=== PATIENT | female | born 1990 | race Caucasian/White ===

== ENCOUNTER 2020-03-17 17:30 | Outpatient (CLI) | payer BC, SELFPAY ==
--- NOTE | ~2020-03-17 | CT_ITS ---
EXAMINATION: CT abdomen pelvis w con DATE: 03/17/2020 17:57 INDICATION: Left lower quadrant abdominal pain for 2 weeks. TECHNIQUE: Computed tomography (CT) of the abdomen and pelvis was performed with 100 cc Omnipaque 350 intravenous contrast. Automated exposure control and iterative reconstruction technique were employe d. Exam dose: 905.50 mGy-cm total exam DLP. COMPARISON: None. FINDINGS: There is discoid atelectasis or scarring in the lung bases, primarily at the medial segment of the left lower lobe. Normal heart size. No pericardial or pleural effusion. The liver appears normal. No bile duct dilatation. There is a small stone in the gallbladder. No gall bladder wall thickening or pericholecystic fluid or inflammation. No pancreatic mass lesion, calcific ation or ductal dilatation. Normal splenic size. Normal morphology of the adrenal glands. A few small renal cysts are suggested. The kidneys are otherwise unremarkable. No urinary tract calcu lexie or hydroureteronephrosis. Normal caliber of the abdominal aorta. The left ovary appears prominent, measuring approximately 3.2 x 4 cm. Consider pelvic sonographic cor relation as clinically appropriate. The right ovary is not visualized. The urinary bladder is unremar kable. No intraperitoneal or retroperitoneal or pelvic mass lesion or adenopathy or ascites. Normal appendix. No bowel obstruction, bowel wall thickening, pneumatosis or intraperitoneal free ai r. No suspicious osteolytic or osteoblastic lesions. L5 limbus vertebra. IMPRESSION: Cholelithiasis A few small renal cysts Prominent left ovary, measuring 3.2 x 4 cm; consider pelvic sonographic correlation as clinically flavio ropriate Reviewed, dictated and finalized at [facility]. Reviewed, dictated and finalized at [facility]. IMPRESSION: Cholelithiasis A few small renal cysts Prominent left ovary, measuring 3.2 x 4 cm; consider pelvic sonographic correla tion as clinically appropriate
== END 2020-03-17 17:31 | disposition home or self-care (01) ==
PROVIDERS: PCP Family Medicine; Visit Provider Family Medicine
DX: R10.32 Left lower quadrant pain (principal); K80.20 Calculus of gallbladder without cholecystitis without obstruction; N28.1 Cyst of kidney, acquired
CPT/HCPCS: 74177; Q9967

== ENCOUNTER 2023-08-21 13:22 | Emergency (ER) | payer OTHER, SELFPAY ==
[2023-08-21] VITALS (11 sets, daily range): BP systolic 95–143; BP diastolic 50–97; PULSE 54–107; RESP 15–24; TEMP 36.3–36.7; O2SAT 96–100
--- NOTE | 2023-08-21 13:25 | ECG_ITS ---
Measurements Intervals [place] Rate: 79 P: 59 MI: 137 QRS: 67 QRSD: 94 T: 54 QT: 367 QTc: 423 Interpretive Statements SINUS RHYTHM NONSPECIFIC T-WAVE ABNORMALITY NO PREVIOUS ECG AVAILABLE FOR COMPARISON Electronically Signed On 08-21-2023 15:38:58 [employer] by Barbara Demarco M.D.
--- NOTE | 2023-08-21 15:57 | ED.ANXIETY ---
HPI - Anxiety General Chief Complaint: Anxiety Stated Complaint: anxiety Time Seen by Provider: 08/21/23 14:35 Source: patient Mode of arrival: ambulatory Limitations: no limitations History of Present Illness HPI narrative: This is a 33 year old female that presents to the ER for worsening anxiety. Ongoing over the last couple of days. Reports today she feels like it would be better for her family if she was not alive. She takes Venlafaxine for anxiety and Xanax as needed. She has no active suicidal plan. No history of self harm. No previous psychiatric hospitalizations. Related Data Allergies Allergy/AdvReac Type Severity Reaction Status Date / Time tramadol Allergy Intermediate Vomiting Verified 08/09/23 12:56 eggs Allergy Mild Diahrrea Uncoded 08/09/23 12:56 Review of Systems Review of Systems: CONSTITUTIONAL: Denies fever PSYCHIATRIC: Reports anxiety and depression. All systems reviewed & are unremarkable except as noted in HPI and below PMFSH Past Medical History Medical History (Updated 08/21/23 @ 19:18 by Veronique Lai PA-C) Abnormal uterine bleeding Anxiety Chronic upset stomach Cubital tunnel syndrome on right Hematoma 2019 Numbness and tingling in both hands Numbness and tingling in right hand PCOS (polycystic ovarian syndrome) Recurrent UTI RUQ abdominal pain UTI (urinary tract infection) Weight management service not available Surgical History Surgical History H/O elbow surgery (~11/2020) H/O umbilical hernia repair (~01/2022) Hx of cholecystectomy (~06/26/22) Family History Family History Grandparent Hypertension Family history of malignant neoplasm of thyroid Social History Social History Smoking status: Former smoker Tobacco type: e-cigarettes/vaping Alcohol intake: current Substance use: current Substance use type: marijuana Lack of Transportation: No Lack of Food: Never True Current Housing: I Have Housing Concerned About Future Housing: No Difficulty Paying Gas/Electric Bills: No Difficulty Paying for Meds: No Currently Unemployed: No Education: Trade/Vocational Certificate Difficulty w/ Childcare or Family Care: No Living arrangements: with family Gender identity (if verbalized by the patient): Female Exam Narrative: GENERAL: Well-appearing, well-nourished, and in no acute distress. HEAD: Normocephalic, atraumatic. EYES: EOMI. CHEST: Clear to auscultation. No respiratory distress. No wheezes rales or rhonchi HEART: Regular rate and rhythm. No murmur heard. Normal peripheral pulses. EXTREMITIES: Normal range of motion. No edema. SKIN: Warm, dry, no rash. NEURO: No focal deficits. Alert and oriented x3. PSYCH: Anxious Course Course Emergency Course: Patient evaluated by crisis. Given further resources and safety plan in place Vital Signs Vital signs: Vital Signs Temperature 97.4 F L 08/21/23 13:23 Pulse Rate 107 H 08/21/23 13:23 Respiratory Rate 20 08/21/23 13:23 Blood Pressure 143/97 H 08/21/23 13:23 Pulse Oximetry 100 08/21/23 13:23 Oxygen Delivery Room Air 08/21/23 13:23 Temperature 97.8 F 08/21/23 17:45 Pulse Rate 68 08/21/23 18:44 Respiratory Rate 16 08/21/23 18:44 Blood Pressure 95/50 L 08/21/23 18:44 Pulse Oximetry 98 08/21/23 18:44 Oxygen Delivery Room Air 08/21/23 13:23 MDM - Anxiety MDM Narrative Medical decision making narrative: Patient presents to the emergency department for worsening anxiety. Also reporting some passive suicidal ideations. She has no active thoughts of harming herself or suicidal plan. No previous attempts at self-harm or psychiatric hospitalizations. She is currently on venlafaxine, has been following with her primary provider. No concerning findings on her laboratory evaluation. Cecy
[2023-08-21] MEDS: LORazepam (*CRX) 1 MG TABLET PO (16:21)
[2023-08-21 16:33] LABS: Basophils Percent Auto 0.1 % (0.2-1.2); Eosinophils Percent Auto 0.1 % (0-4.4); Hematocrit 42.6 % (37.0-47.0); Hemoglobin 14.7 g/dL (12.0-15.0); Immature Granulocyte Absolute 0.02 K/mm3 (0.00-0.031); Immature Granulocyte Percent A 0.3 % (0-0.5); Lymphocytes Absolute Auto 1.35 K/mm3 (0.9-3.2); Mean Corpuscular HGB Conc 34.5 g/dl (32-36); Mean Corpuscular Hemoglobin 31.1 pg (26-34); Mean Corpuscular Volume 90.3 fl (80-100); Mean Platelet Volume 9.8 fl (7.4-10.4); Monocytes Absolute Auto 0.3 K/mm3 (0.1-0.6); Monocytes Percent Auto 3.5 % (2.6-8.5); Neutrophils Absolute Auto 5.5 K/mm3 (1.3-6.7); Platelet Count Result 234 k/mm3 (150-375); Red Blood Count 4.72 M/mm3 (4.2-5.4); Red Cell Distribution Width 12.7 % (11.5-14.5); White Blood Count 7.1 K/mm3 (4.5-10.0)
[2023-08-21 16:42] LABS: Appearance Urine Clear (Clear); Bacteria Urine None Seen /hpf; Bilirubin Urine Negative (Negative); Blood Urine Trace (Negative); Color Urine Yellow (Yellow); Glucose Urine UA Negative (Negative); Ketones Urine 3+ mg/dL (Negative); Leukocyte Esterase Ur Negative LEU/UL (Negative); Nitrate Urine Negative (Negative); Non Pathogenic Casts 0-2; Protein Urine Negative (Negative); Specific Grav Ur 1.012 (1.001-1.035); Squamous Epithelial Cell Urine Occasional /hpf (Few); Urobilinogen Urine 0.2 mg/dL (<2.0); WBC Urine 0-5 /hpf; pH Urine 5.5 (5.0-9.0)
[2023-08-21 16:43] LABS: Ethanol < 10 mg/dL (<10)
[2023-08-21 16:44] LABS: Alanine Aminotransferase 15 U/L (6-35); Albumin Level 4.2 g/dL (3.5-5.1); Alkaline Phosphatase 77 U/L (38-126); Anion Gap 9 mmol/L (8-16); Aspartate Amino Transferase 26 U/L (14-36); Bilirubin,Total 0.9 mg/dL (0.2-1.3); Blood Urea Nitrogen 15 mg/dL (7-17); Calcium 9.4 mg/dL (8.4-10.2); Carbon Dioxide 25 mmol/L (22-30); Chloride 103 mmol/L (98-107); Estimated CRCL calculation 100 ml/min; Estimated Glomerular Filt Rate > 60; Glucose 88 mg/dL (65-110); Potassium 4.1 mmol/L (3.4-5.0); Sodium 137 mmol/L (137-145)
[2023-08-21 16:53] LABS: Add Urine Microscopic? YES
[2023-08-21 17:08] LABS: Influenza A QL RT-PCR Negative (Negative); Influenza B QL RT-PCR Negative (Negative); SARS-CoV-2 RNA PCR Negative (Negative)
[2023-08-21 17:21] LABS: Amphetamine Screen Urine Negative (Negative); Barbiturate Screen Urine Negative (Negative); Benzodiazepines Screen Urine Positive (Negative); Cannabinoid Screen Urine Positive (Negative); Cocaine Screen Urine Negative (Negative); Methadone Screen Urine Negative (Negative); Opiate Screen Urine Negative (Negative); Phencyclidine Screen Urine Negative (Negative)
[2023-08-21 17:51] LABS: Thyroid Stimulating Hormone Reflex 0.608 uIU/mL (0.465-4.68)
== END 2023-08-21 19:30 | disposition home or self-care (01) ==
PROVIDERS: Emergency Provider Physician Assistant; PCP Family Medicine
DX: F41.9 Anxiety disorder, unspecified (principal); Z20.822 Contact with and (suspected) exposure to COVID-19; F17.290 Nicotine dependence, other tobacco product, uncomplicated; Z87.440 Personal history of urinary (tract) infections
CPT/HCPCS: 36415; 80053; 80307; 81001; 81025; 84443; 85025; 87636; 93005; 99284; A9270

== ENCOUNTER 2024-02-15 11:23 | Outpatient (CLI) | payer OTHER, SELFPAY ==
--- NOTE | ~2024-02-15 | XR_ITS ---
XR abdomen/kub 1V DATE: 02/15/2024 12:10 INDICATION: Urinary tract infection TECHNIQUE: AP views COMPARISON: None FINDINGS: There is a prominent amount of fecal material within the colon but no evidence of bowel obs truction. The renal silhouettes appear unremarkable. No urinary tract calcification is noted. The psoas shadows are intact. No visceromegaly is noted. Included skeletal structures are unremarkable. IMPRESSION: Prominent amount of fecal material within the colon; no bowel obstruction No significant abnormal calcification is noted Reviewed, dictated and finalized at [facility]. Reviewed, dictated and finalized at [facility]. IMPRESSION: Prominent amount of fecal material within the colon; no bowel obstr uction No significant abnormal calcification is noted
== END 2024-02-15 11:24 | disposition home or self-care (01) ==
LOC: ANHIMG 11:26
PROVIDERS: PCP Family Medicine; Visit Provider Nurse Practitioner Family
DX: N39.0 Urinary tract infection, site not specified (principal); N20.0 Calculus of kidney; R10.9 Unspecified abdominal pain
CPT/HCPCS: 74018

== ENCOUNTER 2024-02-18 14:35 | Outpatient (CLI) | payer OTHER, SELFPAY ==
--- NOTE | ~2024-02-18 | US_ITS ---
Pelvic ultrasound. Clinical History: Pelvic pain Technique: Realtime transabdominal and transvaginal scanning of the pelvis was performed. Color flow Doppler and Doppler spectral analysis were performed. Findings: The uterus is anteverted. The endometrial stripe has a thickness of 10 mm. No focal mass i s identified. The right ovary is not visualized. No significant right ovarian or adnexal mass is seen. The left ovary measures 6.0 x 4.6 x 4.6 cm. Left ovarian hemorrhagic cyst measures 4.4 cm in diameter . No evidence for left ovarian torsion. There is a small amount of free fluid in the cul de sac. Impression: 4.4 cm hemorrhagic left ovarian cyst. Small amount of free fluid in the pelvis. Reviewed, dictated and finalized at location . Impression: 4.4 cm hemorrhagic left ovarian cyst. Small amount of free fluid in the pelvis.
== END 2024-02-18 14:36 ==
LOC: GOSHIMG 14:36
PROVIDERS: PCP Nurse Practitioner Family; Visit Provider Nurse Practitioner Family
DX: R10.2 Pelvic and perineal pain (principal); N83.202 Unspecified ovarian cyst, left side
CPT/HCPCS: 76830; 76856

== ENCOUNTER 2024-02-18 14:54 | Outpatient (CLI) | payer OTHER, SELFPAY ==
[2024-02-18 18:56] LABS: Basophils Percent Auto 0.1 % (0.2-1.2); Eosinophils Percent Auto 0.3 % (0-4.4); Hematocrit 42.9 % (37.0-47.0); Hemoglobin 13.9 g/dL (12.0-15.0); Immature Granulocyte Absolute 0.01 K/mm3 (0.00-0.031); Immature Granulocyte Percent A 0.1 % (0-0.5); Lymphocytes Absolute Auto 1.86 K/mm3 (0.9-3.2); Lymphocytes Percent Auto 25.3 % (18.3-44.2); Mean Corpuscular HGB Conc 32.4 g/dl (32-36); Mean Corpuscular Hemoglobin 31.2 pg (26-34); Mean Corpuscular Volume 96.2 fl (80-100); Mean Platelet Volume 10.7 fl (7.4-10.4); Monocytes Absolute Auto 0.4 K/mm3 (0.1-0.6); Monocytes Percent Auto 5.8 % (2.6-8.5); Neutrophils Percent Auto 68.4 % (45.5-73.1); Platelet Count Result 246 k/mm3 (150-375); Red Blood Count 4.46 M/mm3 (4.2-5.4); Red Cell Distribution Width 12.6 % (11.5-14.5); White Blood Count 7.4 K/mm3 (4.5-10.0)
[2024-02-18 19:36] LABS: Alanine Aminotransferase 17 U/L (6-35); Albumin Level 4.1 g/dL (3.5-5.1); Alkaline Phosphatase 49 U/L (38-126); Amylase 71 U/L (30-110); Anion Gap 8 mmol/L (4-12); Aspartate Amino Transferase 35 U/L (14-36); Bilirubin,Total 0.5 mg/dL (0.2-1.3); Blood Urea Nitrogen 16 mg/dL (7-17); Calcium 9.3 mg/dL (8.4-10.2); Carbon Dioxide 30 mmol/L (22-30); Chloride 97 mmol/L (98-107); Estimated Glomerular Filt Rate > 60; Glucose 85 mg/dL (65-110); Lipase 140 U/L (23-300); Sodium 135 mmol/L (137-145)
[2024-02-18 19:45] LABS: Beta HCG Quantitative < 2.39 mIU/ML
== END 2024-02-18 14:55 | disposition home or self-care (01) ==
LOC: ANHGOSHLAB 14:57
PROVIDERS: PCP Nurse Practitioner Family; Visit Provider Nurse Practitioner Family
DX: R10.9 Unspecified abdominal pain (principal); N39.0 Urinary tract infection, site not specified
CPT/HCPCS: 36415; 80053; 82150; 83690; 84702; 85025; 87077; 87086; 87088; 87181

== ENCOUNTER 2024-08-14 09:35 | Outpatient (CLI) | payer OTHER, SELFPAY ==
[2024-08-14 13:36] LABS: Basophils Percent Auto 0.2 % (0.2-1.2); Eosinophils Absolute Auto 0.1 K/mm3 (0-0.3); Eosinophils Percent Auto 2.5 % (0-4.4); Hematocrit 44.6 % (37.0-47.0); Hemoglobin 14.6 g/dL (12.0-15.0); Immature Granulocyte Absolute 0.01 K/mm3 (0.00-0.031); Immature Granulocyte Percent A 0.2 % (0-0.5); Lymphocytes Absolute Auto 2.01 K/mm3 (0.9-3.2); Lymphocytes Percent Auto 45.6 % (18.3-44.2); Mean Corpuscular HGB Conc 32.7 g/dl (32-36); Mean Corpuscular Hemoglobin 30.9 pg (26-34); Mean Corpuscular Volume 94.5 fl (80-100); Mean Platelet Volume 10.4 fl (7.4-10.4); Monocytes Absolute Auto 0.3 K/mm3 (0.1-0.6); Monocytes Percent Auto 7.7 % (2.6-8.5); Neutrophils Absolute Auto 1.9 K/mm3 (1.3-6.7); Neutrophils Percent Auto 43.8 % (45.5-73.1); Platelet Count Result 276 k/mm3 (150-375); Red Blood Count 4.72 M/mm3 (4.2-5.4); Red Cell Distribution Width 12.5 % (11.5-14.5); White Blood Count 4.4 K/mm3 (4.5-10.0)
[2024-08-14 13:47] LABS: Alanine Aminotransferase 15 U/L (6-35); Albumin Level 4.5 g/dL (3.5-5.1); Alkaline Phosphatase 71 U/L (38-126); Anion Gap 9 mmol/L (4-12); Aspartate Amino Transferase 30 U/L (14-36); Bilirubin,Total 0.7 mg/dL (0.2-1.3); Blood Urea Nitrogen 14 mg/dL (7-17); Calcium 9.4 mg/dL (8.4-10.2); Carbon Dioxide 32 mmol/L (22-30); Chloride 100 mmol/L (98-107); Cholesterol 159 mg/dL (0-200); Estimated Glomerular Filt Rate > 60; Glucose 94 mg/dL (65-110); HDL Direct 76 mg/dL; Potassium 4.6 mmol/L (3.4-5.0); Sodium 141 mmol/L (137-145); Triglycerides 62 mg/dL (<150)
[2024-08-14 13:55] LABS: Free T4 Free Thyroxine 0.98 ng/dL (0.78-2.19); Vitamin D 25 Hydroxy 21.2 ng/mL
[2024-08-14 14:01] LABS: LDL Cholesterol Direct 71 mg/dL
== END 2024-08-14 09:36 | disposition home or self-care (01) ==
LOC: ANHGOSHLAB 09:36
PROVIDERS: PCP Family Medicine; Visit Provider Nurse Practitioner Family
DX: F41.9 Anxiety disorder, unspecified (principal); I10 Essential (primary) hypertension; E55.9 Vitamin D deficiency, unspecified; Z00.00 Encounter for general adult medical examination without abnormal findings; Z13.220 Encounter for screening for lipoid disorders
CPT/HCPCS: 36415; 80053; 80061; 82306; 84439; 84443; 85025